=== PATIENT | male | born 1960 | race Caucasian/White ===

== ENCOUNTER → 2016-10-24 | Outpatient (CLI) | payer BC ==
[~2016-10-24] MED LIST: ACET325T14 PO; CYCL-259 PO; DICL75TA2 PO; OMEP40CA6 PO; POTA99TA3 PO
== END | disposition home or self-care (01) ==
LOC: STAR 11:50
PROVIDERS: ATTEND Orthopaedic Surgery
DX: M17.11 Unilateral primary osteoarthritis, right knee (principal)
CPT/HCPCS: 87081

== ENCOUNTER 2016-10-30 06:15 | Inpatient (IN) | payer BC ==
[2016-10-25 08:58] VITALS: BP 138/87
[~2016-10-30] VITALS: Ht 177.8 cm; Wt 130.0 kg
[2016-10-30] MEDS ORDERED: ROPIvacaine/PF 0.2%, 20 ML ONE (06:54)
[2016-10-30] MEDS ORDERED: ROPIvacaine/PF 0.5%, 30 ML ONE (06:54)
[2016-10-30] MEDS ORDERED: VANCOMYCIN PMX 1GM/200ML 200 ML IV ONE (07:00)
[2016-10-30] MEDS ORDERED: LACTATED RINGERS 1,000 ML IV SCH (07:35)
[2016-10-30] MEDS ORDERED: FENTANYL PF 250 MCG/5ML ONE (08:29)
[2016-10-30] MEDS ORDERED: MIDAZOLAM 1 MG/ML, 2ML ONE (08:29)
[2016-10-30] MEDS ORDERED: CLINDAMYCIN 150 MG/ML, 6ML ONE (09:03)
[2016-10-30] MEDS ORDERED: TRANEXAMIC ACID 100 MG/ML, 10ML ONE (09:03)
[2016-10-30] MEDS ORDERED: PROPOFOL 10 MG/ML, 20ML ONE (09:20)
[2016-10-30] MEDS ORDERED: ONDANSETRON 2MG/ML, 2ML ONE (09:20)
[2016-10-30] MEDS ORDERED: GLYCOPYRROLATE 0.2MG/1ML ONE ×2 (09:20)
[2016-10-30] MEDS ORDERED: NEOSTIGMINE 1 MG/ML, 10ML ONE (09:20)
[2016-10-30] MEDS ORDERED: DEXAMETHASONE 4 MG/ML, 1ML ONE (09:20)
[2016-10-30] MEDS ORDERED: CEFAZOLIN 1,000 MG ONE (09:20)
[2016-10-30] MEDS ORDERED: ROCURONIUM 10 MG/ML ONE (09:20)
[2016-10-30] MEDS: OXYcodone IR 5MG TABLET PO SCH ×3 (09:30→20:12)
[2016-10-30] MEDS ORDERED: TEMPLATE NON-FORMULARY MED. (Potassium Gluconate** 595 MG) PO SCH (09:30)
[2016-10-30] MEDS: CEFAZOLIN PMX 2GM/50ML 50 ML IVPB SCH ×2 (09:30→17:35)
[2016-10-30] MEDS ORDERED: METOPROLOL 1 MG/ML, 5ML IV PRN (10:00)
[2016-10-30] MEDS ORDERED: LABETALOL 5MG/ML, 20ML IV PRN (10:00)
[2016-10-30] MEDS ORDERED: ALBUTEROL SULFATE 2.5 MG/3 ML NPPB PRN (10:00)
[2016-10-30] MEDS ORDERED: EPHEDRINE 50 MG/ML, 1ML IVPush PRN (10:00)
[2016-10-30] MEDS ORDERED: hydrALAzine 20 MG/ML, 1ML IV PRN (10:00)
[2016-10-30] MEDS ORDERED: ONDANSETRON 2MG/ML, 2ML IVPush PRN (10:00)
[2016-10-30] MEDS ORDERED: ACETAMINOPHEN 325 MG TABLET PO PRN (10:00)
[2016-10-30] MEDS ORDERED: OXYcodone 5 MG/5 ML ORAL.SOL UDC PO PRN (10:00)
[2016-10-30] MEDS ORDERED: HYDROmorphone 1 MG/ML, 1ML IV PRN (10:00)
[2016-10-30] MEDS ORDERED: MEPERIDINE/PF 25MG/0.5ML IVPush PRN (10:00)
[2016-10-30] MEDS ORDERED: ACETAMINOPHEN 325 MG TABLET ONE (11:23)
[2016-10-30] MEDS ORDERED: FENTANYL PF 100 MCG/2ML ONE (11:23)
[2016-10-30] MEDS ORDERED: OXYcodone 5 MG/5 ML ORAL.SOL UDC ONE (11:23)
[2016-10-30] MEDS: FENTANYL PF 100 MCG/2ML IV PRN ×3 (11:29→11:52)
[2016-10-30 14:41] VITALS: BP 98/64
[2016-10-30] MEDS: D5%-0.45% NACL 1,000 ML IV SCH ×2 (17:07→17:35)
[2016-10-30 20:00] VITALS: BP 108/59
[2016-10-30] MEDS: CYCLOBENZAPRINE 10 MG TABLET PO SCH (20:12)
[2016-10-31] MEDS: OXYcodone IR 5MG TABLET PO SCH ×6 (00:09→21:32)
[2016-10-31 00:45] VITALS: BP 99/59
[2016-10-31] MEDS: D5%-0.45% NACL 1,000 ML IV SCH ×3 (01:07→17:07)
[2016-10-31] MEDS ORDERED: CEFAZOLIN 2,000 MG in SODIUM CHLORIDE 0.9% 50 ML IV ONE (01:30)
[2016-10-31] MEDS ORDERED: CEFAZOLIN PMX 2GM/50ML 50 ML IVPB ONE (01:30)
[2016-10-31 05:15] VITALS: BP 98/62
[2016-10-31 07:00] VITALS: BP_SYST 102; BP_SYST 66; BP_DIAS 62; BP_DIAS 66
[2016-10-31] MEDS: CYCLOBENZAPRINE 10 MG TABLET PO SCH ×2 (08:04→21:32)
[2016-10-31] MEDS: OMEPRAZOLE 20 MG CAPSULE.DR PO SCH (08:04)
[2016-10-31] MEDS: KETOROLAC 30 MG/1 ML IV SCH ×2 (10:50→18:29)
[2016-10-31 12:40] VITALS: BP 109/64
[2016-10-31 22:49] VITALS: BP 103/64
[2016-11-01] MEDS: OXYcodone IR 5MG TABLET PO SCH ×4 (00:10→11:51)
[2016-11-01] MEDS: D5%-0.45% NACL 1,000 ML IV SCH ×2 (01:07→08:11)
[2016-11-01 03:42] VITALS: BP 102/66
[2016-11-01] MEDS: morphine SULFATE 10 MG/ML, 1ML IV PRN ×3 (03:49→09:31)
[2016-11-01] MEDS: KETOROLAC 30 MG/1 ML IV SCH (03:50)
[2016-11-01] MEDS: OMEPRAZOLE 20 MG CAPSULE.DR PO SCH (08:10)
[2016-11-01] MEDS: CYCLOBENZAPRINE 10 MG TABLET PO SCH (08:11)
[2016-11-01 08:30] VITALS: BP 110/72
[2016-11-01] MEDS ORDERED: ASPI-496 PO (13:54)
[2016-11-01 14:55] VITALS: BP 133/82
== END 2016-11-01 16:15 | disposition home or self-care (01) | DRG 470 ==
LOC: OUT 06:15 → ORIP 09:07 → EDSTATUS 09:30 → 4NOR 12:50
PROVIDERS: ADMIT Orthopaedic Surgery; ATTEND Orthopaedic Surgery
PROC: 3E0T3BZ Introduction of Anesthetic Agent into Peripheral Nerves and Plexi, Percutaneous Approach (ICD-10-PCS; 2016-10-30)
PROC: 0SRC0J9 Replacement of Right Knee Joint with Synthetic Substitute, Cemented, Open Approach (ICD-10-PCS; principal; 2016-10-30 09:30)
DX: M17.11 Unilateral primary osteoarthritis, right knee (principal); Z68.41 Body mass index [BMI] 40.0-44.9, adult; K21.9 Gastro-esophageal reflux disease without esophagitis; E66.9 Obesity, unspecified; Z87.891 Personal history of nicotine dependence; Z79.899 Other long term (current) drug therapy
CPT/HCPCS: C1713; J0690; J1100; J1885; J2250; J2405; J2704; J2710; J2795; J3010; J3370; J3490; C1776; J2270; J7120